=== PATIENT | female | born 1950 | race Caucasian/White ===

== ENCOUNTER 2023-07-10 11:23 | Day surgery (SDC) | payer MEDICARE, BC ==
[~2023-07-10 11:23] MED LIST: Lactated Ringers 1,000 ML IV SCH; Sodium Chloride 0.9% 10 ML Syringe FLUSH PRN; Sodium Chloride 0.9% 10 ML Syringe FLUSH SCH
[2023-07-10] MEDS ORDERED: Propofol 200 MG/20 ML SDV ONE (12:57)
[2023-07-10] MEDS ORDERED: Midazolam 1 MG/ML 2 ML SDV ONE (12:58)
[2023-07-10] MEDS ORDERED: fentaNYL 100 MCG/2 ML SDV ONE (12:58)
[2023-07-10 15:18] VITALS: BP 156/68; PULSE 82
== END 2023-07-10 15:12 | disposition home or self-care (01) ==
LOC: JD.SDS 11:23
PROVIDERS: ATTEND Surgery
DX: Z12.11 Encounter for screening for malignant neoplasm of colon (principal); D12.4 Benign neoplasm of descending colon; K57.30 Diverticulosis of large intestine without perforation or abscess without bleeding; F41.9 Anxiety disorder, unspecified; F32.A Depression, unspecified; G47.33 Obstructive sleep apnea (adult) (pediatric); E11.9 Type 2 diabetes mellitus without complications; Z85.3 Personal history of malignant neoplasm of breast; Z79.84 Long term (current) use of oral hypoglycemic drugs; Z91.041 Radiographic dye allergy status; Z91.040 Latex allergy status; Z79.899 Other long term (current) drug therapy; Z79.82 Long term (current) use of aspirin; Z98.890 Other specified postprocedural states
CPT/HCPCS: 45385; 88305; J2250; J2704; J3010; J7120; 00811; 99100